=== PATIENT | male | born 1975 | race African-American/Black ===

== ENCOUNTER 2020-06-28 21:21 | Emergency (ER) | payer BC ==
[2020-06-28] MEDS ORDERED: ALBUTEROL NEBULIZED 2.5 MG/3 ML INHALATION STA ×2 (21:37→22:50)
[2020-06-28] MEDS ORDERED: IPRATROPIUM 0.5 MG/2.5 ML NEBU INHALATION STA ×2 (21:37→22:50)
[2020-06-28] MEDS ORDERED: dexAMETHasone 4 MG TAB PO STA (21:38)
--- NOTE | 2020-06-28 21:40 | ED ---
General Adult HPI - General Source: patient Mode of arrival: ambulatory Limitations: no limitations <Stephan Diaz D - Last Filed: 06/28/20 22:50> <Cecilia Jose P - Last Filed: 06/29/20 00:44> - General Chief complaint: Shortness of Breath Stated complaint: SOB Time Seen by Provider: 06/28/20 21:35 - History of Present Illness Initial comments: Dictation was produced using [employer] dictation software. please excuse any grammatical, word or spelling errors. This patient was cared for during a federal and state declared state of emergency secondary to Covid 19 Chief Complaint: 44-year-old male presents with dyspnea History of Present Illness: 44-year-old male he has history of asthma. Patient states that his wheezing became apparent today. Says it happened during the latter parts of work. Patient states he has a mild cough however nonproductive of sputum. Denies any constitutional symptoms. Patient has inhaler that he uses for asthma exacerbations. Denies any pain complaints. No runny nose sore throat. The ROS documented in this emergency department record has been reviewed and confirmed by me. Those systems with pertinent positive or negative responses have been documented in the HPI. All other systems are other negative and/or noncontributory. PHYSICAL EXAM: General Impression: Alert and oriented x3, mildly dyspneic HEENT: Normocephalic atraumatic, extra-ocular movements intact, pupils equal and reactive to light bilaterally, mucous membranes moist. Cardiovascular: Heart regular rate and rhythm Chest: 5 word sentences, wheezing diffusely with auscultation to the lungs, no retractions, no tachypnea Abdomen: abdomen soft, non-tender, non-distended, no organomegaly Musculoskeletal: Pulses present and equal in all extremities, no peripheral edema Motor: no focal deficits noted Neurological: CN II-XII grossly intact, no focal motor or sensory deficits noted Skin: Intact with no visualized rashes Psych: Normal affect and mood ED course: 44-year-old male presents with asthma exacerbation. Signs upon arrival shows 93% on room air, rest of vital signs within acceptable limits. Laboratory evaluation obtained found to be in acceptable limits. Metabolic panel is unremarkable. Chest x-ray is nonacute. Patient reports improvement after initial breathing treatment however he still feels short of breath and still significantly wheezing. Patient given another breathing treatment. Patient care signed out to Dr. Jose for reevaluation after second breathing treatment and to determine final disposition. (Stephan Diaz) - Related Data Allergies Allergy/AdvReac Type Severity Reaction Status Date / Time No Known Allergies Allergy Verified 06/28/20 21:25 Review of Systems ROS Other: All systems not noted in ROS Statement are negative. <Stephan Diaz - Last Filed: 06/28/20 22:50> ROS Other: All systems not noted in ROS Statement are negative. <Cecilia Jose - Last Filed: 06/29/20 00:44> ROS Statement: Those systems with pertinent positive or pertinent negative responses have been documented in the HPI. Past Medical History Past Medical History: Asthma History of Any Multi-Drug Resistant Organisms: None Reported Past Surgical History: No Surgical Hx Reported Past Psychological History: No Psychological Hx Reported Smoking Status: Current every day smoker Past Alcohol Use History: Occasional Past Drug Use History: None Reported <Stephan Diaz - Last Filed: 06/28/20 22:50> General Exam Limitations: no limitations <Stephan Diaz - Last Filed: 06/28/20 22:50> Course Vital Signs 06/28/20 06/28/20 06/28/20 21:22 21:50 22:09 Temperature 98.0 F Pulse Rate 79 Respiratory 18 22 Rate Blood Pressure 155/88 O2 Sat by Pulse 93 L 97 Oximetry 06/28/20 06/28/20 06/28/20 22:15 22:28 22:48 Temperature Pulse Rate 73 92 72 Respiratory Rate Blood Pressure O2 Sat by Pulse Oximetry 06/28/20 06/28/20 06/28/20 23:15 23:27 23:40 Temperature Pulse Rate 81 74 74 Respiratory 16 Rate Blood Pressure 148/85 O2 Sat by Pulse 96 Oximetry 06/28/20 06/29/20 23:53 00:20 Temperature Pulse Rate 74 74 Respiratory Rate Blood Pressure O2 Sat by Pulse Oximetry Medical Decision Making - Lab Data Result diagrams: 06/28/20 21:40 06/28/20 21:40 <Stephan Diaz - Last Filed: 06/28/20 22:50> - Lab Data Result diagrams: 06/28/20 21:40 06/28/20 21:40 <Cecilia Jose - Last Filed: 06/29/20 00:44> - Medical Decision Making Patient care was signed out to me by Dr Diaz, patient was re-evaluated after repeat breathing treatment, reported resolution of shortness of breath, is requesting discharge home with prescription for nebulized albuterol. (Cecilia Jose) - Lab Data Lab Results 06/28/20 06/28/20 Range/Units 21:40 21:40 WBC 11.8 H (3.8-10.6) k/uL RBC 5.26 (4.30-5.90) m/uL Hgb 16.2 (13.0-17.5) gm/dL Hct 53.2 H (39.0-53.0) % MCV 101.0 H (80.0-100.0) fL MCH 30.7 (25.0-35.0) pg MCHC 30.4 L (31.0-37.0) g/dL RDW 12.9 (11.5-15.5) % Plt Count 221 (150-450) k/uL Neutrophils % 78 % Lymphocytes % 10 % Monocytes % 7 % Eosinophils % 4 % Basophils % 1 % Neutrophils # 9.2 H (1.3-7.7) k/uL Lymphocytes # 1.1 (1.0-4.8) k/uL Monocytes # 0.8 (0-1.0) k/uL Eosinophils # 0.4 (0-0.7) k/uL Basophils # 0.1 (0-0.2) k/uL Hypochromasia Slight Sodium 140 (137-145) mmol/L Potassium 4.7 (3.5-5.1) mmol/L Chloride 106 (98-107) mmol/L Carbon Dioxide 31 H (22-30) mmol/L Anion Gap 3 mmol/L BUN 11 (9-20) mg/dL Creatinine 1.19 (0.66-1.25) mg/dL Est GFR (CKD-EPI)AfAm 87 (>60 ml/min/1.73 sqM) Est GFR (CKD-EPI)NonAf 75 (>60 ml/min/1.73 sqM) Glucose 109 H (74-99) mg/dL Calcium 9.3 (8.4-10.2) mg/dL Disposition <Stephan Diaz - Last Filed: 06/28/20 22:50> Is patient prescribed a controlled substance at d/c from ED?: No <Cecilia Jose - Last Filed: 06/29/20 00:44> Clinical Impression: Wheezing, URI (upper respiratory infection) Disposition: HOME SELF-CARE Condition: Stable Instructions (If sedation given, give patient instructions): Asthma (ED) Prescriptions: Albuterol Nebulized [Ventolin Nebulized] 2.5 mg INHALATION Q4H #30 nebu Referrals: None,Stated [Primary Care Provider] - 1-2 days
[2020-06-28 22:02] LABS: Basophils # (A) 0.1 k/uL (0-0.2); Basophils % (A) 1 %; Eosinophils # (A) 0.4 k/uL (0-0.7); Eosinophils % (A) 4 %; HCT 53.2 % (39.0-53.0); HGB 16.2 gm/dL (13.0-17.5); Hypochromasia Slight; Lymphocytes # (A) 1.1 k/uL (1.0-4.8); Lymphocytes % (A) 10 %; MCH 30.7 pg (25.0-35.0); MCHC 30.4 g/dL (31.0-37.0); Mean Platelet Volume 7.9; Monocytes # (A) 0.8 k/uL (0-1.0); Monocytes % (A) 7 %; Neutrophils # (A) 9.2 k/uL (1.3-7.7); Neutrophils % (A) 78 %; Platelet Count 221 k/uL (150-450); RBC 5.26 m/uL (4.30-5.90); RDW 12.9 % (11.5-15.5); WBC 11.8 k/uL (3.8-10.6)
[2020-06-28 22:10] LABS: Calcium 9.3 mg/dL (8.4-10.2); Potassium 4.7 mmol/L (3.5-5.1)
--- NOTE | 2020-06-28 22:22 | XR ---
EXAMINATION TYPE: XR chest 2V DATE OF EXAM: 06/28/2020 COMPARISON: NONE HISTORY: Wheezing. Short of breath. TECHNIQUE: 2 views FINDINGS: Heart and mediastinum are normal. Lungs are clear. Diaphragm is normal. Bony thorax appears normal. IMPRESSION: Normal chest.
[2020-06-29 01:07] VITALS: BP 121/76; PULSE 86; RESP 18; TEMP 97.7
== END 2020-06-29 01:07 | disposition home or self-care (01) ==
LOC: EC 21:21
DX: J06.9 Acute upper respiratory infection, unspecified (principal); J45.901 Unspecified asthma with (acute) exacerbation; F17.200 Nicotine dependence, unspecified, uncomplicated
CPT/HCPCS: 36415; 94644; 94645; 80048; 85025; 71046; 99285; J8540

== ENCOUNTER 2021-03-08 19:15 | Emergency (ER) | payer BC ==
[2021-03-08 19:23] VITALS: TEMP 97.7
[2021-03-08] MEDS ORDERED: HYDROcodone/APAP 5-325MG 1 EACH TAB PO STA (20:29)
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
[2021-03-08] MEDS ORDERED: ACET/COD 300 MG/30 MG STARTER PACK 6 TAB BTL PO STA (22:15)
[2021-03-08 22:30] VITALS: BP 138/99; PULSE 70; RESP 17
== END 2021-03-08 22:30 | disposition home or self-care (01) ==
LOC: EC 19:15
DX: S00.12XA Contusion of left eyelid and periocular area, initial encounter (principal); W22.8XXA Striking against or struck by other objects, initial encounter; J45.909 Unspecified asthma, uncomplicated; F17.200 Nicotine dependence, unspecified, uncomplicated
CPT/HCPCS: 70486; 99283